=== PATIENT | male | born 1965 | race Caucasian/White ===

== ENCOUNTER → 2018-01-18 | Outpatient (CLI) | payer BC ==
[~2018-01-18] MED LIST: DOXEPIN HCL100 MG PO; FLEXERIL10 MG PO; GABAPENTIN100 MG PO; NORCO 5/3251 TABLET PO; SINEQUAN50 MG PO; VICODIN 5-3001 EACH PO; ZOCOR20 MG PO
== END | disposition home or self-care (01) ==
LOC: CDC 09:56
DX: Z01.810 Encounter for preprocedural cardiovascular examination (principal); K42.9 Umbilical hernia without obstruction or gangrene; I45.10 Unspecified right bundle-branch block; I09.89 Other specified rheumatic heart diseases; R94.31 Abnormal electrocardiogram [ECG] [EKG]
CPT/HCPCS: 93000

== ENCOUNTER 2018-01-20 07:23 | Day surgery (SDC) | payer BC ==
[~2018-01-20] VITALS: Ht 190.5 cm; Wt 112.5 kg
[~2018-01-20 07:23] MED LIST changes: -NORCO 5/3251 TABLET PO
[2018-01-20 07:52] VITALS: BP 139/86
[2018-01-20] MEDS ORDERED: NORCO 5/3251 TABLET PO (10:18)
[2018-01-20 13:30] VITALS: BP 159/88
[2018-01-20 14:30] VITALS: BP 138/99
== END 2018-01-20 14:50 | disposition home or self-care (01) ==
LOC: SDC 07:23
PROC: 0WUF4JZ Supplement Abdominal Wall with Synthetic Substitute, Percutaneous Endoscopic Approach (ICD-10-PCS; principal; 2018-01-20)
DX: K42.9 Umbilical hernia without obstruction or gangrene (principal); Q87.40 Marfan syndrome, unspecified; E66.9 Obesity, unspecified; Z68.31 Body mass index [BMI] 31.0-31.9, adult; Z82.49 Family history of ischemic heart disease and other diseases of the circulatory system; Z83.49 Family history of other endocrine, nutritional and metabolic diseases
CPT/HCPCS: C1781; J0131; J0690; J1100; J1170; J1885; J2250; J2405; J2765; J3010; S0020